=== PATIENT | male | born 1965 | race African-American/Black ===

== ENCOUNTER 2023-08-29 11:12 | Day surgery (SDC) | payer OTHER ==
[2023-08-21 14:19] VITALS: BMI 27.9
[2023-08-29] MEDS ORDERED: BUPIVACAINE HCL/PF 2.5 MG/ML - 30 ML VIAL IJ ONE (12:05)
[2023-08-29] MEDS ORDERED: MIDAZOLAM HCL 2 MG/2 ML SINGLE DOSE VIAL ONE (12:44)
[2023-08-29] MEDS ORDERED: ONDANSETRON 4 MG/2 ML VIAL IVPUSH PRN (12:50)
[2023-08-29] MEDS ORDERED: oxyCODONE HCL 5 MG TABLET PO PRN ×2 (12:50)
[2023-08-29] MEDS ORDERED: LACTATED RINGERS SOLUTION 1,000 ML IV SCH (13:00)
[2023-08-29] MEDS ORDERED: ONDANSETRON 4 MG/2 ML VIAL ONE ×2 (13:28→14:16)
[2023-08-29] MEDS ORDERED: DEXAMETHASONE SOD PHOSPHATE 4 MG/1 ML VIAL ONE (13:28)
[2023-08-29] MEDS ORDERED: KETOROLAC TROMETHAMINE 30 MG/1 ML VIAL ONE (13:28)
[2023-08-29] MEDS ORDERED: ceFAZolin SODIUM 1 GM VIAL ONE (13:28)
[2023-08-29] MEDS ORDERED: FENTANYL CITRATE/PF 50 MCG/ML VIAL ONE (14:04)
[2023-08-29 15:35] VITALS: BP 124/66; PULSE 76; RESP 18; TEMP 97.1
== END 2023-08-29 15:29 | disposition home or self-care (01) ==
LOC: FASU 11:12
PROVIDERS: ATTEND Orthopaedic Surgery
PROC: 0SBC4ZZ Excision of Right Knee Joint, Percutaneous Endoscopic Approach (ICD-10-PCS; 2023-08-29)
PROC: 0SBC4ZZ Excision of Right Knee Joint, Percutaneous Endoscopic Approach (ICD-10-PCS; 2023-08-29)
PROC: 0SBC4ZZ Excision of Right Knee Joint, Percutaneous Endoscopic Approach (ICD-10-PCS; 2023-08-29)
PROC: 0SBC4ZZ Excision of Right Knee Joint, Percutaneous Endoscopic Approach (ICD-10-PCS; principal; 2023-08-29 13:30)
DX: S83.241A Other tear of medial meniscus, current injury, right knee, initial encounter (principal); S83.281A Other tear of lateral meniscus, current injury, right knee, initial encounter; M65.861 Other synovitis and tenosynovitis, right lower leg; S83.8X1A Sprain of other specified parts of right knee, initial encounter; Y92.9 Unspecified place or not applicable; Y93.9 Activity, unspecified
CPT/HCPCS: 94760